=== PATIENT | female | born 1990 | race Caucasian/White ===

== ENCOUNTER → 2018-02-02 00:39 | Outpatient (CLI) | payer OTHER, SELFPAY ==
--- NOTE | 2018-02-02 07:43 | DI.REPORT_ITS ---
SYMPTOM/DIAGNOSIS: PERSISTENT PAIN OVER 8 YR, OLD INCISION R10.2 PELVIC PAIN PELVIC ULTRASOUND: 02/02 Pelvic ultrasound was performed transabdominally and transvaginally. Please see the accompanying data sheet for measurements of the pelvic structures. Myometrium is unremarkable in appearance. Endometrial stripe is homogeneous and 3-4 mm in thickness. No free fluid identified in the cul de sac. Limited scanning of the kidneys is unremarkable. The ovaries have a normal follicular appearance. CONCLUSION: Negative pelvic ultrasound.
== END ==
PROVIDERS: Visit Provider Nurse Practitioner Family
DX: R10.2 Pelvic and perineal pain (principal); R10.9 Unspecified abdominal pain
CPT/HCPCS: 76830; 76856